=== PATIENT | female | born 1970 | race Caucasian/White ===

== ENCOUNTER 2017-02-12 19:50 | Inpatient (IN) | payer OTHER ==
[2017-02-12 21:44] VITALS: BMI 22.8
--- NOTE | 2017-02-12 23:09 | HP ---
Admission [facility] [place] - [facility] Chief Complaint: SEEKING REHAB TXMENT Allergies/Adverse Reactions: Allergies Allergy/AdvReac Type Severity Reaction Status Date / Time No Known Allergies Allergy Verified 02/12/17 21:59 History of Present Illness: 46 Y.O FEMale WITH ALCOHOLISM DC FROM [facility] TODAY AFTER 10 DAY STAY ADMITTED TO REHAB. CLIENT WAS DC WITH RX BACTRIM FOR a UTI AND LIBRIUM TAPER FOR 2 MORE DAYS. D/W CLIENT LIBRIUM WILL NOT BE CONT WHILE IN REHAB/ CLIENT VERBALIZED UNDERSTANDING. Exam Limitations: No Limitations - Ebola screening Have you traveled outside of the country in the last 21 days: No (N) Have you had contact with anyone from an Ebola affected area: No Have you been sick,other than usual withdrawal symptoms: No Do you have a fever: No - Review of Systems Constitutional: Chills EENT: reports: Dental Problems (DENTURES) Respiratory: reports: No Symptoms reported Cardiac: reports: No Symptoms Reported GI: reports: No Symptoms Reported : reports: No Symptoms Reported Musculoskeletal: reports: No Symptoms Reported Integumentary: reports: No Symptoms Reported Neuro: reports: No Symptoms reported Endocrine: reports: No Symptoms Reported Hematology: reports: No Symptoms Reported Psychiatric: reports: Anxious Other Systems: Reviewed and Negative Patient History - Patient Medical History Hx Anemia: Yes Hx Asthma: No Hx Chronic Obstructive Pulmonary Disease (COPD): No Hx Cancer: No Hx Cardiac Disorders: No Hx Congestive Heart Failure: No Hx Hypertension: No Hx Hypercholesterolemia: No Hx Pacemaker: No HX Cerebrovascular Accident: No Hx Seizures: No Hx Dementia: No Hx Diabetes: No Hx Gastrointestinal Disorders: No Hx Liver Disease: No Hx Genitourinary Disorders: No Hx Sexually Transmitted Disorders: No Hx Renal Disease (ESRD): No Hx Thyroid Disease: No Hx Human Immunodeficiency Virus (HIV): No Hx Hepatitis C: No Hx Depression: No Hx Suicide Attempt: No Hx Bipolar Disorder: No Hx Schizophrenia: No Other Medical History: DENIES - Patient Surgical History Past Surgical History: No - PPD History Previous Implant?: Yes Documented Results: Negative w/o proof Implanted On Prior R Admission?: No PPD to be Administered?: Yes - Reproductive History Patient is a Female of Child Bearing Age (11 -55 yrs old): Yes LMP comment: 01/24/17 Patient : No (NEG [facility] [place] - Smoking Cessation Smoking history: Never smoked Initiated information on smoking cessation: No - Substance & Tx. History Hx Alcohol Use: Yes Hx Substance Use: Yes Substance Use Type: Alcohol Hx Substance Use Treatment: Yes ([facility]) - Substances Abused BEER Route: Oral Frequency: Daily Amount used: 2- 6 PACKS Age of first use: 20 Date of Last Use: 02/02/17 Family Disease History - Family Disease History Family Disease History: Diabetes: Mother, Other: Sister (BREAST CA) Admission Physical Exam [facility] - Vital Signs Vital Signs: Vital Signs - 24 hr 02/12/17 21:41 Temperature 97.5 F L Pulse Rate 92 H Respiratory 20 Rate Blood Pressure 104/73 - Physical General Appearance: Yes: Appropriately Dressed, Tremorous, Anxious HEENTM: Yes: EOMI, Normocephalic, Normal Voice, BRIAN, Pharynx Normal, Other ( DENTURES) Respiratory: Yes: Chest Non-Tender, Lungs Clear, Normal Breath Sounds, No Respiratory Distress, No Accessory Muscle Use Neck: Yes: No masses,lesions,Nodules, Supple, Trachea in good position Breast: Yes: Breast Exam Deferred Cardiology: Yes: Regular Rhythm, Regular Rate, S1, S2 Abdominal: Yes: Normal Bowel Sounds, Non Tender, Soft Genitourinary: Yes: Within Normal Limits Back: Yes: Normal Inspection Extremities: Yes: Normal Capillary Refill, Normal Range of Motion, Non-Tender, Tremors Neurological: Yes: locomotive engineer diesel II-XII NML intact, Fully Oriented, Alert, Motor Strength 5/5 Integumentary: Yes: Normal Color, Dry, Warm, Other (ECCHYMOTIC AREAS TO UE FROM NEEDLE STICKS WHILE HOSPITALIZED) Lymphatic: Yes: Within Normal Limits - Diagnostic (1) UTI (urinary tract infection) Current Visit: Yes Status: Acute (2) Alcohol dependence with uncomplicated withdrawal Current Visit: Yes Status: Chronic Cleared for Admission [facility] - Detox or Rehab Detox Regimen/Protocol: Not Applicable Claeared for Rehab Admission: Yes [facility] Breath Alcohol Content Breath Alcohol Content: 0 Urine Pregancy Test - Result Urine Test Results: Negative- NO Line Present Urine Drug Screen - Results Drug Screen Negative: No Urine Drug Screen Results: BZO-Benzodiazepines
[2017-02-12] MEDS ORDERED: MAGNESIUM CITRATE 300 ML BOTTLE PO PRN (23:20)
[2017-02-12] MEDS ORDERED: P-EPHED 60MG/TRIPROLIDI 2.5MG TABLET PO PRN (23:20)
[2017-02-12] MEDS ORDERED: MAG HYDROX/AL HYDROX/SIMETH 30 ML UNIT-DOSE CUP PO PRN (23:20)
[2017-02-12] MEDS ORDERED: MAGNESIUM HYDROX 2400MG/30ML ORAL SUSPENSION 30 ML CUP PO PRN (23:20)
[2017-02-12] MEDS ORDERED: diphenhydrAMINE HCL 50 MG CAPSULE PO PRN (23:20)
[2017-02-12] MEDS ORDERED: guaiFENesin/D-METHORPHAN HB 10 ML UNIT-DOSE CUPS PO PRN (23:20)
[2017-02-12] MEDS ORDERED: LOPERAMIDE HCL 2 MG CAPSULE PO PRN (23:20)
[2017-02-12] MEDS ORDERED: MENTHOL/PHENOL 1 EACH UD MM PRN (23:20)
[2017-02-13] MEDS ORDERED: TUBERCULIN PPD 5 TU/0.1ML VIAL ID ONE (00:40)
[2017-02-13] MEDS: hydrOXYzine PAMOATE 50 MG CAPSULE (FP) PO PRN (00:45)
[2017-02-13] MEDS: SULFAMETHOXAZOLE/TRIMETHOPRIM 800MG/160MG D.S. TABLET PO SCH ×3 (00:45→22:48)
[2017-02-13] MEDS: ACETAMINOPHEN 325 MG TABLET (FP) PO PRN (07:00)
[2017-02-13 09:56] LABS: MCH 24.1 pg (25.7-33.7); MCHC 31.7 g/dl (32.0-36.0); MEAN CELL VOLUME 76.1 fl (80-96); MEAN PLT VOLUME 8.5 fl (7.5-11.1); PLATELET COUNT 349 K/MM3 (134-434); RDW 15.3 % (11.6-15.6); WHITE BLOOD COUNT 8.5 K/mm3 (4.0-10.0)
[2017-02-13 10:25] LABS: ALBUMIN 2.7 g/dl (3.4-5.0); ALK PHOS 91 U/L (45-117); ANION GAP 10 (8-16); BILIRUBIN,TOTAL 0.6 mg/dL (0.2-1.0); CALCIUM 9.2 mg/dL (8.5-10.1); CO2 26 mmol/L (21-32); COCKROFT - GAULT 94.6135; CREATININE 0.7 mg/dL (0.55-1.02); GLUCOSE,RANDOM 85 mg/dL (74-106); SGOT/AST 104 U/L (15-37); SGPT/ALT 57 U/L (12-78)
[2017-02-13] MEDS: PANTOPRAZOLE 40 MG TABLET (FP) PO SCH (10:37)
[2017-02-13] MEDS: PRENATAL VITAMINS W/ FOLIC ACID TABLET (FP) PO SCH (10:37)
--- NOTE | 2017-02-13 11:00 | EKG ---
Test Reason : Blood Pressure : / mmHG Vent. Rate : 097 BPM Atrial Rate : 097 BPM P-R Int : 134 ms QRS Dur : 074 ms QT Int : 346 ms P-R-T Axes : 042 048 021 degrees QTc Int : 439 ms SINUS RHYTHM WITH PREMATURE SUPRAVENTRICULAR COMPLEXES NONSPECIFIC T WAVE ABNORMALITY ABNORMAL ECG WHEN COMPARED WITH ECG OF 13-FEB-2017 05:45, PREMATURE SUPRAVENTRICULAR COMPLEXES ARE NOW PRESENT Confirmed by LINDSAY LINARES, YUMIKO ([id number]) on 02/13/2017 11:00:04 AM Referred By: Jayne Stark Confirmed By:YUMIKO MONTOYA MD
--- NOTE | 2017-02-13 11:00 | EKG ---
Test Reason : Blood Pressure : / mmHG Vent. Rate : 099 BPM Atrial Rate : 099 BPM P-R Int : 136 ms QRS Dur : 082 ms QT Int : 344 ms P-R-T Axes : 046 047 018 degrees QTc Int : 441 ms NORMAL SINUS RHYTHM NONSPECIFIC T WAVE ABNORMALITY ABNORMAL ECG NO PREVIOUS ECGS AVAILABLE Confirmed by LINDSAY LINARES, YUMIKO ([id number]) on 02/13/2017 11:00:10 AM Referred By: Jayne Stark Confirmed By:YUMIKO MONTOYA MD
[2017-02-13 17:18] LABS: URINE APPEARANCE CLEAR; URINE BILIRUBIN NEGATIVE (NEGATIVE); URINE BLOOD NEGATIVE (NEGATIVE); URINE COLOR LTYELLOW; URINE GLUCOSE (UA) NEGATIVE (NEGATIVE); URINE KETONE NEGATIVE (NEGATIVE); URINE LEUK ESTERASE NEGATIVE (NEGATIVE); URINE NITRITE NEGATIVE (NEGATIVE); URINE PROTEIN NEGATIVE (NEGATIVE); URINE UROBILINOGEN NEGATIVE E.U./dl (0.2-1.0)
[2017-02-13] MEDS: THIAMINE HCL 100 MG TABLET (FP) PO SCH (21:50)
[2017-02-14] MEDS: ACETAMINOPHEN 325 MG TABLET (FP) PO PRN (06:13)
--- NOTE | 2017-02-14 08:11 | HP ---
Psychiatrist Admission - Data Date of interview: 02/14/17 Admission source: [facility] Identifying data: This is the first admission to [address] [place] [address] rehabilitation for this 46 years old single H female,mother of 2 (17 and 23 yo), resides with family,supported by unemployement. Medical History: unremarkable Psychiatric History: denies Physical/Sexual Abuse/Trauma History: denies Vital Signs: Vital Signs - 24 hr 02/14/17 02/14/17 02/14/17 00:30 03:30 06:42 Temperature 97.7 F Pulse Rate 94 H Respiratory 16 16 18 Rate Blood Pressure 114/75 Allergies/Adverse Reactions: Allergies Allergy/AdvReac Type Severity Reaction Status Date / Time No Known Allergies Allergy Verified 02/12/17 21:59 Date of last physical exam: 02/12/17 Concur with the findings of this exam: Yes - Substance Abuse/Tx History Hx Alcohol Use: Yes (reports drinking since 20 yo,about 12 beers daily) Hx Substance Use: No Substance Use Type: Alcohol Hx Substance Use Treatment: Yes (this is her first inpatient rehabilitaton treatment) - Admission Criteria Previous failed treatment: Yes Poor recovery environment: Yes Comorbidities: Yes Lacks judgement: Yes Mental Status Exam - Mental Status Exam Alert and Oriented to: Time, Place, Person Cognitive Function: Grossly Intact Patient Appearance: Well Groomed Mood: Anxious Affect: Labile Patient Behavior: Cooperative Speech Pattern: Clear Voice Loudness: Normal Thought Process: Goal Oriented Thought Disorder: Not Present Hallucinations: Denies Suicidal Ideation: Denies Homicidal Ideation: Denies Insight/Judgement: Fair Sleep: Fair Appetite: Good Muscle strength/Tone: Normal Gait/Station: Normal Psychiatric Findings - Problem List ([place] 1, 2,3) (1) UTI (urinary tract infection) Current Visit: Yes Status: Resolved (2) Alcohol dependence with uncomplicated withdrawal Current Visit: Yes Status: Chronic - Initial Treatment Plan Initial Treatment Plan: Will monitor progress.
[2017-02-14] MEDS: SULFAMETHOXAZOLE/TRIMETHOPRIM 800MG/160MG D.S. TABLET PO SCH ×2 (10:32→23:22)
[2017-02-14] MEDS: PRENATAL VITAMINS W/ FOLIC ACID TABLET (FP) PO SCH (10:32)
[2017-02-14] MEDS: PANTOPRAZOLE 40 MG TABLET (FP) PO SCH (10:32)
[2017-02-14] MEDS: FERROUS SO4 325 MG TABLET (FP) PO SCH (18:10)
[2017-02-14] MEDS: THIAMINE HCL 100 MG TABLET (FP) PO SCH (21:38)
[2017-02-15] MEDS: ACETAMINOPHEN 325 MG TABLET (FP) PO PRN (06:26)
[2017-02-15] MEDS: FERROUS SO4 325 MG TABLET (FP) PO SCH ×3 (07:59→17:45)
[2017-02-15] MEDS: PANTOPRAZOLE 40 MG TABLET (FP) PO SCH (10:21)
[2017-02-15] MEDS: PRENATAL VITAMINS W/ FOLIC ACID TABLET (FP) PO SCH (10:21)
[2017-02-15] MEDS: hydrOXYzine PAMOATE 50 MG CAPSULE (FP) PO PRN (10:22)
[2017-02-15] MEDS: SULFAMETHOXAZOLE/TRIMETHOPRIM 800MG/160MG D.S. TABLET PO SCH ×2 (10:43→23:39)
[2017-02-15] MEDS: THIAMINE HCL 100 MG TABLET (FP) PO SCH (21:25)
[2017-02-16] MEDS: ACETAMINOPHEN 325 MG TABLET (FP) PO PRN (00:54)
[2017-02-16] MEDS: IBUPROFEN 400 MG TABLET (FP) PO PRN (07:24)
[2017-02-16] MEDS: FERROUS SO4 325 MG TABLET (FP) PO SCH ×3 (07:24→18:08)
[2017-02-16] MEDS: PANTOPRAZOLE 40 MG TABLET (FP) PO SCH (10:30)
[2017-02-16] MEDS: PRENATAL VITAMINS W/ FOLIC ACID TABLET (FP) PO SCH (10:30)
[2017-02-16] MEDS: SULFAMETHOXAZOLE/TRIMETHOPRIM 800MG/160MG D.S. TABLET PO SCH (10:30)
[2017-02-16] MEDS: hydrOXYzine PAMOATE 50 MG CAPSULE (FP) PO PRN (12:17)
[2017-02-16] MEDS: THIAMINE HCL 100 MG TABLET (FP) PO SCH (21:37)
[2017-02-17] MEDS: IBUPROFEN 400 MG TABLET (FP) PO PRN (01:39)
[2017-02-17] MEDS: ACETAMINOPHEN 325 MG TABLET (FP) PO PRN (06:17)
[2017-02-17] MEDS: FERROUS SO4 325 MG TABLET (FP) PO SCH ×3 (07:30→16:53)
[2017-02-17] MEDS: PRENATAL VITAMINS W/ FOLIC ACID TABLET (FP) PO SCH (09:52)
[2017-02-17] MEDS: PANTOPRAZOLE 40 MG TABLET (FP) PO SCH (09:52)
[2017-02-17] MEDS: THIAMINE HCL 100 MG TABLET (FP) PO SCH (21:21)
[2017-02-18] MEDS: IBUPROFEN 400 MG TABLET (FP) PO PRN (06:31)
[2017-02-18] MEDS: FERROUS SO4 325 MG TABLET (FP) PO SCH ×3 (07:55→16:51)
[2017-02-18] MEDS: PANTOPRAZOLE 40 MG TABLET (FP) PO SCH (09:54)
[2017-02-18] MEDS: PRENATAL VITAMINS W/ FOLIC ACID TABLET (FP) PO SCH (09:54)
[2017-02-18] MEDS ORDERED: PT OWN MED DRAWER 7, Y5N ONE (10:15)
[2017-02-18] MEDS: THIAMINE HCL 100 MG TABLET (FP) PO SCH (21:27)
[2017-02-19] MEDS: FERROUS SO4 325 MG TABLET (FP) PO SCH ×3 (07:09→17:14)
[2017-02-19] MEDS: PANTOPRAZOLE 40 MG TABLET (FP) PO SCH (10:16)
[2017-02-19] MEDS: PRENATAL VITAMINS W/ FOLIC ACID TABLET (FP) PO SCH (10:16)
[2017-02-19] MEDS: IBUPROFEN 400 MG TABLET (FP) PO PRN (17:14)
[2017-02-19] MEDS: THIAMINE HCL 100 MG TABLET (FP) PO SCH (21:38)
[2017-02-20] MEDS: ACETAMINOPHEN 325 MG TABLET (FP) PO PRN (06:14)
[2017-02-20] MEDS: FERROUS SO4 325 MG TABLET (FP) PO SCH ×3 (07:45→18:30)
[2017-02-20] MEDS: PRENATAL VITAMINS W/ FOLIC ACID TABLET (FP) PO SCH (09:37)
[2017-02-20] MEDS: PANTOPRAZOLE 40 MG TABLET (FP) PO SCH (09:37)
[2017-02-20] MEDS ORDERED: PT OWN MED DRAWER 7, Y5N ONE (10:08)
[2017-02-20] MEDS: THIAMINE HCL 100 MG TABLET (FP) PO SCH (21:37)
[2017-02-21] MEDS: FERROUS SO4 325 MG TABLET (FP) PO SCH ×3 (07:30→17:35)
[2017-02-21] MEDS: IBUPROFEN 400 MG TABLET (FP) PO PRN (07:56)
[2017-02-21] MEDS: PANTOPRAZOLE 40 MG TABLET (FP) PO SCH (09:42)
[2017-02-21] MEDS: PRENATAL VITAMINS W/ FOLIC ACID TABLET (FP) PO SCH (09:42)
[2017-02-21] MEDS ORDERED: PT OWN MED DRAWER 7, Y5N ONE (12:25)
[2017-02-21] MEDS: THIAMINE HCL 100 MG TABLET (FP) PO SCH (21:24)
[2017-02-22] MEDS: IBUPROFEN 400 MG TABLET (FP) PO PRN (06:24)
[2017-02-22] MEDS: FERROUS SO4 325 MG TABLET (FP) PO SCH ×3 (07:37→17:35)
[2017-02-22] MEDS: PANTOPRAZOLE 40 MG TABLET (FP) PO SCH (10:03)
[2017-02-22] MEDS: PRENATAL VITAMINS W/ FOLIC ACID TABLET (FP) PO SCH (10:03)
[2017-02-22] MEDS ORDERED: PT OWN MED DRAWER 7, Y5N ONE (11:29)
[2017-02-22] MEDS: THIAMINE HCL 100 MG TABLET (FP) PO SCH (21:29)
[2017-02-23] MEDS: IBUPROFEN 400 MG TABLET (FP) PO PRN (06:21)
[2017-02-23] MEDS: FERROUS SO4 325 MG TABLET (FP) PO SCH ×3 (07:24→17:51)
[2017-02-23] MEDS: PANTOPRAZOLE 40 MG TABLET (FP) PO SCH (10:19)
[2017-02-23] MEDS: PRENATAL VITAMINS W/ FOLIC ACID TABLET (FP) PO SCH (10:19)
--- NOTE | 2017-02-23 11:43 | PN ---
Psychiatric Progress Note Vital Signs: Vital Signs Period Temp Pulse Resp BP Sys/Garcia Pulse Ox Last 24 Hr 98.2 F 95 16-16 107/77 Date of Session: 02/23/17 Chief Complaint:: Mario still having craving for alcohol." HPI: Patient addressed Alcohol dependence. ROS: H/O UTI. Current Medications: Active Medications Generic Name Dose Route Start Last Admin Trade Name Freq PRN Reason Stop Dose Admin Acamprosate 666 mg 02/23/17 14:00 Campral - PO TID ARLETTE Acetaminophen 650 mg 02/12/17 23:20 02/20/17 06:14 Tylenol - PO 650 mg Q4H PRN Administration PAIN Al Hydroxide/Mg Hydroxide 30 ml 02/12/17 23:20 Mylanta Oral Suspension - PO Q6H PRN DYSPEPSIA Diphenhydramine HCl 50 mg 02/12/17 23:20 02/17/17 21:21 Benadryl - PO 50 mg HSMR1 PRN Administration INSOMNIA Eucalyptus/Menthol/Phenol/Sorbitol 1 each 02/12/17 23:20 Cepastat Lozenge - MM Q4H PRN SORE THROAT Ferrous Sulfate 325 mg 02/14/17 17:30 02/23/17 07:24 Feosol - PO 325 mg TIDCM ARLETTE Administration Guaifenesin 10 ml 02/12/17 23:20 Robitussin Dm - PO Q6H PRN COUGH Hydroxyzine Pamoate 50 mg 02/12/17 23:20 02/16/17 12:17 Vistaril - PO 50 mg Q4H PRN Administration AGITATION Ibuprofen 400 mg 02/12/17 23:20 02/23/17 06:21 Motrin - PO 400 mg Q6H PRN Administration SEVERE PAIN Loperamide HCl 4 mg 02/12/17 23:20 Imodium - PO Q6H PRN DIARRHEA Magnesium Citrate 300 ml 02/12/17 23:20 Citroma - PO Q48H PRN CONSTIPATION Magnesium Hydroxide 30 ml 02/12/17 23:20 Milk Of Magnesia - PO DAILY PRN CONSTIPATION Pantoprazole Sodium 40 mg 02/13/17 10:00 02/23/17 10:19 Protonix - PO 40 mg DAILY ARLETTE Administration Multivit/Folic Acid/Iron 1 tab 02/13/17 10:00 02/23/17 10:19 Vitamins (Sjr) - PO 1 tab DAILY ARLETTE Administration Pseudoephedrine/Triprolidine 1 combo 02/12/17 23:20 Actifed - PO TID PRN NASAL CONGESTION Thiamine HCl 100 mg 02/13/17 22:00 02/22/17 21:29 Vitamin B1 - PO 100 mg HS ARLETTE Administration Current Side Effect: No Lab tests ordered: No Lab tests reviewed: Yes Provider note:: Patient was evaluated today due to ongoing alcohol craving .She reports that she is still thinking about drinking beer and afraid how she would handle it after discharge home.Properties of Campral has been discussed with the patient including side effects,benefits.Patient is willing to start Campral 333 mg po 2 tab po tid since today. Coping skills utilization to maintain recovery has been discussed with the patient. Supportive therapy provided. Total face to face time:: 30 Mental Status Exam - Mental Status Exam Alert and Oriented to: Time, Place, Person Cognitive Function: Grossly Intact Patient Appearance: Well Groomed Mood: Nervous Affect: Labile Patient Behavior: Cooperative Speech Pattern: Clear Voice Loudness: Normal Thought Process: Goal Oriented Thought Disorder: Not Present Hallucinations: Denies Suicidal Ideation: Denies Homicidal Ideation: Denies Insight/Judgement: Fair Sleep: Fair Appetite: Fair Muscle strength/Tone: Normal Gait/Station: Normal Psychiatric Treatment Plan - Problem List (1) UTI (urinary tract infection) Current Visit: Yes (2) Alcohol dependence with uncomplicated withdrawal Current Visit: Yes
[2017-02-23] MEDS: ACAMPROSATE CALCIUM 333 MG TABLET.DR PO SCH ×2 (13:22→21:47)
[2017-02-23] MEDS: THIAMINE HCL 100 MG TABLET (FP) PO SCH (21:47)
[2017-02-24] MEDS: ACAMPROSATE CALCIUM 333 MG TABLET.DR PO SCH ×3 (06:46→21:36)
[2017-02-24] MEDS: FERROUS SO4 325 MG TABLET (FP) PO SCH ×3 (07:01→17:25)
[2017-02-24] MEDS: PRENATAL VITAMINS W/ FOLIC ACID TABLET (FP) PO SCH (09:59)
[2017-02-24] MEDS: PANTOPRAZOLE 40 MG TABLET (FP) PO SCH (09:59)
[2017-02-24] MEDS: THIAMINE HCL 100 MG TABLET (FP) PO SCH (21:35)
[2017-02-25] MEDS: ACAMPROSATE CALCIUM 333 MG TABLET.DR PO SCH ×3 (06:42→21:40)
[2017-02-25] MEDS: FERROUS SO4 325 MG TABLET (FP) PO SCH ×3 (07:34→17:25)
[2017-02-25] MEDS: PRENATAL VITAMINS W/ FOLIC ACID TABLET (FP) PO SCH (10:04)
[2017-02-25] MEDS: PANTOPRAZOLE 40 MG TABLET (FP) PO SCH (10:04)
[2017-02-25] MEDS: THIAMINE HCL 100 MG TABLET (FP) PO SCH (21:40)
[2017-02-26] MEDS: ACAMPROSATE CALCIUM 333 MG TABLET.DR PO SCH (07:22)
[2017-02-26] MEDS: FERROUS SO4 325 MG TABLET (FP) PO SCH (07:25)
[2017-02-26 07:49] VITALS: BP 113/79; PULSE 84; TEMP 98.2
--- NOTE | 2017-02-26 09:24 | PN ---
Psychiatric Progress Note Vital Signs: Vital Signs Period Temp Pulse Resp BP Sys/Garcia Pulse Ox Last 24 Hr 98.2 F 84 16-18 113/79 Date of Session: 02/26/17 Chief Complaint:: Disharge visit HPI: Patient addressed Alcohol dependence. ROS: Significant for UTI. Current Medications: Active Medications Generic Name Dose Route Start Last Admin Trade Name Freq PRN Reason Stop Dose Admin Acamprosate 666 mg 02/23/17 14:00 02/26/17 07:22 Campral - PO 666 mg TID ARLETTE Administration Acetaminophen 650 mg 02/12/17 23:20 02/20/17 06:14 Tylenol - PO 650 mg Q4H PRN Administration PAIN Al Hydroxide/Mg Hydroxide 30 ml 02/12/17 23:20 Mylanta Oral Suspension - PO Q6H PRN DYSPEPSIA Diphenhydramine HCl 50 mg 02/12/17 23:20 02/17/17 21:21 Benadryl - PO 50 mg HSMR1 PRN Administration INSOMNIA Eucalyptus/Menthol/Phenol/Sorbitol 1 each 02/12/17 23:20 Cepastat Lozenge - MM Q4H PRN SORE THROAT Ferrous Sulfate 325 mg 02/14/17 17:30 02/26/17 07:25 Feosol - PO 325 mg TIDCM ARLETTE Administration Guaifenesin 10 ml 02/12/17 23:20 Robitussin Dm - PO Q6H PRN COUGH Hydroxyzine Pamoate 50 mg 02/12/17 23:20 02/16/17 12:17 Vistaril - PO 50 mg Q4H PRN Administration AGITATION Ibuprofen 400 mg 02/12/17 23:20 02/23/17 06:21 Motrin - PO 400 mg Q6H PRN Administration SEVERE PAIN Loperamide HCl 4 mg 02/12/17 23:20 Imodium - PO Q6H PRN DIARRHEA Magnesium Citrate 300 ml 02/12/17 23:20 Citroma - PO Q48H PRN CONSTIPATION Magnesium Hydroxide 30 ml 02/12/17 23:20 Milk Of Magnesia - PO DAILY PRN CONSTIPATION Pantoprazole Sodium 40 mg 02/13/17 10:00 02/25/17 10:04 Protonix - PO 40 mg DAILY ARLETTE Administration Multivit/Folic Acid/Iron 1 tab 02/13/17 10:00 02/25/17 10:04 Vitamins (Sjr) - PO 1 tab DAILY ARLETTE Administration Pseudoephedrine/Triprolidine 1 combo 02/12/17 23:20 Actifed - PO TID PRN NASAL CONGESTION Thiamine HCl 100 mg 02/13/17 22:00 02/25/17 21:40 Vitamin B1 - PO 100 mg HS ARLETTE Administration Current Side Effect: No Lab tests ordered: No Lab tests reviewed: Yes Provider note:: Patient completed this program today.She has met her treatment goals and will continue to address her issues on outpatient basis at [facility] program in the [place].Patient continues to find that Campral 333 mg 2 tab po tid help to reduce craving for alcohol.Scripts for 30 days provided. Supportive therapy provided including utilization of coping skills,support system to maintain recovery. Patient is stable for discharge today. Total face to face time:: 30 Mental Status Exam - Mental Status Exam Alert and Oriented to: Time, Place, Person Cognitive Function: Grossly Intact Patient Appearance: Well Groomed Mood: Euthymic Affect: Mood Congruent Patient Behavior: Cooperative Speech Pattern: Clear Voice Loudness: Normal Thought Process: Goal Oriented Thought Disorder: Not Present Hallucinations: Denies Suicidal Ideation: Denies Homicidal Ideation: Denies Insight/Judgement: Fair Sleep: Fair Appetite: Good Muscle strength/Tone: Normal Gait/Station: Normal Psychiatric Treatment Plan - Problem List (1) UTI (urinary tract infection) Current Visit: Yes (2) Alcohol dependence with uncomplicated withdrawal Current Visit: Yes
== END 2017-02-26 10:15 | disposition home or self-care (01) | DRG 772 ==
LOC: YASAS 19:50 → Y6N 22:00 → UNDOADMIN 22:00 → Y3E 22:19
PROVIDERS: ADMIT Psychiatry & Neurology Psychiatry; ATTEND Psychiatry & Neurology Psychiatry
PROC: HZ42ZZZ Group Counseling for Substance Abuse Treatment, Cognitive-Behavioral (ICD-10-PCS; principal; 2017-02-12)
DX: F10.20 Alcohol dependence, uncomplicated (principal); N39.0 Urinary tract infection, site not specified; D64.9 Anemia, unspecified
CPT/HCPCS: 36415; 80053; 81003; 85027; 86593; 86803; 93005; 93010

== ENCOUNTER 2023-12-25 10:36 | Inpatient (IN) | payer OTHER ==
[2023-12-25 11:04] VITALS: BMI 22.3
[2023-12-25] MEDS ORDERED: DICYCLOMINE HCL 10 MG CAPSULE PO PRN (12:59)
[2023-12-25] MEDS ORDERED: POLYETHYLENE GLYCOL (HEALTHYLAX) 3350 17 GM PACKET PO PRN (12:59)
[2023-12-25] MEDS ORDERED: BENZOCAINE/MENTHOL (CHLORASEPTIC ) LOZENGE MM PRN (12:59)
[2023-12-25] MEDS ORDERED: LOPERAMIDE HCL 2 MG CAPSULE PO PRN (12:59)
[2023-12-25] MEDS ORDERED: NALOXONE HCL (KLOXXADO) 8 MG SPRAY NS PRN (12:59)
[2023-12-25] MEDS ORDERED: MAGNESIUM HYDROX 2400MG/30ML ORAL SUSPENSION 30 ML CUP PO PRN (12:59)
[2023-12-25] MEDS ORDERED: BISMUTH SUBSALICYLATE 524 MG/30 ML PO PRN (12:59)
[2023-12-25] MEDS ORDERED: guaiFENesin 600 MG TABLET.ER (FP) PO PRN (12:59)
[2023-12-25] MEDS ORDERED: IBUPROFEN 400 MG TABLET (FP) PO PRN (12:59)
[2023-12-25] MEDS ORDERED: MAG HYDROX/AL HYDROX/SIMETH 30 ML UNIT-DOSE CUP PO PRN (12:59)
[2023-12-25] MEDS ORDERED: NALOXONE HCL 0.4 MG/ML VIAL IM PRN (12:59)
[2023-12-25] MEDS ORDERED: ONDANSETRON *ODT* 4 MG TABLET SL PRN (12:59)
[2023-12-25] MEDS ORDERED: ACETAMINOPHEN 325 MG TABLET (FP) PO PRN (12:59)
[2023-12-25] MEDS ORDERED: BENZONATATE 200 MG CAPSULE PO PRN (12:59)
[2023-12-25] MEDS: METHOCARBAMOL 500 MG TABLET PO PRN (13:52)
[2023-12-25] MEDS: hydrOXYzine PAMOATE 25 MG CAPSULE (FP) PO PRN (13:52)
[2023-12-25] MEDS: PANTOPRAZOLE 40 MG TABLET PO SCH (17:15)
[2023-12-25] MEDS: chlordiazePOXIDE HCL 25 MG CAPSULE PO SCH (17:15)
[2023-12-25] MEDS: IBUPROFEN 600 MG TABLET (FP) PO PRN (17:16)
[2023-12-25] MEDS: SULFAMETHOXAZOLE/TRIMETHOPRIM 800MG/160MG D.S. TABLET PO SCH (22:11)
[2023-12-25] MEDS: THIAMINE 100 MG TABLET PO SCH (22:11)
[2023-12-25] MEDS: MELATONIN 5 MG TABLETS PO SCH (22:11)
[2023-12-26] MEDS: PRENATAL VITAMINS W/ FOLIC ACID TABLET (FP) PO SCH (10:33)
[2023-12-26] MEDS: amLODIPine BESYLATE 5 MG TABLET (FP) PO SCH (11:08)
[2023-12-26 11:24] LABS: HEMOGLOBIN 9.7 GM/dL (10.7-15.3); MCH 23.9 pg (25.7-33.7); MCHC 31.3 g/dl (32.0-36.0); MEAN CELL VOLUME 76.5 fl (80-96); MEAN PLT VOLUME 8.4 fl (7.5-11.1); PLATELET COUNT 109 10^3/uL (134-434); RBC 4.06 M/mm3 (3.60-5.2); RDW 19.9 % (11.6-15.6)
[2023-12-26 11:30] LABS: WHITE BLOOD COUNT 1.9 K/mm3 (4.0-10.0)
[2023-12-26 11:44] LABS: POTASSIUM 3.9 mmol/L (3.5-5.1)
[2023-12-26 11:45] LABS: CALCIUM 9.2 mg/dL (8.5-10.1)
[2023-12-26 11:46] LABS: BLOOD UREA NITROGEN 7.2 mg/dL (7-18)
[2023-12-26 11:48] LABS: CREATININE 0.7 mg/dL (0.55-1.3)
[2023-12-26 11:52] LABS: BILIRUBIN,TOTAL 0.8 mg/dL (0.2-1); TOT PROT 7.6 g/dl (6.4-8.2)
[2023-12-26] MEDS: chlordiazePOXIDE HCL 25 MG CAPSULE PO PRN (13:29)
[2023-12-26] MEDS: BACITRACIN 0.9 GM PACKET TP SCH (22:25)
[2023-12-27] MEDS: chlordiazePOXIDE HCL 25 MG CAPSULE PO SCH (05:50)
[2023-12-27 10:16] LABS: HEMATOCRIT 29.7 % (32.4-45.2); HEMOGLOBIN 9.3 GM/dL (10.7-15.3); MCH 24.1 pg (25.7-33.7); MCHC 31.3 g/dl (32.0-36.0); MEAN CELL VOLUME 76.9 fl (80-96); MEAN PLT VOLUME 8.2 fl (7.5-11.1); PLATELET COUNT 75 10^3/uL (134-434); RBC 3.87 M/mm3 (3.60-5.2); RDW 18.9 % (11.6-15.6); WHITE BLOOD COUNT 2.6 K/mm3 (4.0-10.0)
[2023-12-28] MEDS ORDERED: chlordiazePOXIDE HCL 10 MG CAPSULE PO PRN
[2023-12-28] MEDS: chlordiazePOXIDE HCL 10 MG CAPSULE PO SCH (05:51)
[2023-12-29] MEDS: chlordiazePOXIDE HCL 10 MG CAPSULE PO SCH (05:51)
[2023-12-29 20:56] VITALS: RESP 17
[2023-12-30] MEDS: chlordiazePOXIDE HCL 10 MG CAPSULE PO ONE (05:37)
[2023-12-30 10:37] VITALS: BP 136/82; PULSE 110; TEMP 98.6
== END 2023-12-30 11:15 | disposition home or self-care (01) | DRG 775 ==
LOC: YASAS 10:36 → Y6N 13:16
PROVIDERS: ADMIT Allergy & Immunology; ATTEND Surgery
PROC: HZ2ZZZZ Detoxification Services for Substance Abuse Treatment (ICD-10-PCS; principal; 2023-12-25)
DX: F10.230 Alcohol dependence with withdrawal, uncomplicated (principal); D50.9 Iron deficiency anemia, unspecified; D72.819 Decreased white blood cell count, unspecified; I10 Essential (primary) hypertension; K21.9 Gastro-esophageal reflux disease without esophagitis; R73.03 Prediabetes; R79.89 Other specified abnormal findings of blood chemistry
CPT/HCPCS: 36415; 80053; 80305; 80307; 81025; 82607; 82728; 82747; 83540; 83550; 85014; 85027; 86780; 93005; 93010

== ENCOUNTER 2024-09-12 09:13 | Inpatient (IN) | payer OTHER ==
[2024-09-12 09:38] VITALS: BMI 23.3
[2024-09-12] MEDS ORDERED: ACETAMINOPHEN 325 MG TABLET (FP) PO PRN (09:49)
[2024-09-12] MEDS ORDERED: DICYCLOMINE HCL 10 MG CAPSULE PO PRN (09:49)
[2024-09-12] MEDS ORDERED: MAG HYDROX/AL HYDROX/SIMETH 30 ML UNIT-DOSE CUP PO PRN (09:49)
[2024-09-12] MEDS ORDERED: NALOXONE (NARCAN) HCL 4 MG/0.1 ML SPRAY NS PRN (09:49)
[2024-09-12] MEDS ORDERED: LOPERAMIDE HCL 2 MG CAPSULE PO PRN (09:49)
[2024-09-12] MEDS ORDERED: POLYETHYLENE GLYCOL (HEALTHYLAX) 3350 17 GM PACKET PO PRN (09:49)
[2024-09-12] MEDS ORDERED: BENZONATATE 200 MG CAPSULE PO PRN (09:49)
[2024-09-12] MEDS ORDERED: IBUPROFEN 400 MG TABLET (FP) PO PRN (09:49)
[2024-09-12] MEDS ORDERED: guaiFENesin 600 MG TABLET.ER (FP) PO PRN (09:49)
[2024-09-12] MEDS ORDERED: ONDANSETRON *ODT* 4 MG TABLET SL PRN (09:49)
[2024-09-12] MEDS ORDERED: BISMUTH SUBSALICYLATE 262 MG/15 ML BTL PO PRN (09:49)
[2024-09-12] MEDS ORDERED: IBUPROFEN 600 MG TABLET (FP) PO PRN (09:49)
[2024-09-12] MEDS ORDERED: MAGNESIUM HYDROX 2400MG/30ML ORAL SUSPENSION 30 ML CUP PO PRN (09:49)
[2024-09-12] MEDS ORDERED: P-EPHED 60MG/TRIPROLIDI 2.5MG TABLET PO PRN (09:49)
[2024-09-12] MEDS ORDERED: BENZOCAINE/MENTHOL (CHLORASEPTIC ) LOZENGE MM PRN (09:49)
[2024-09-12] MEDS ORDERED: PRENATAL VITAMINS W/ FOLIC ACID TABLET (FP) PO ONE (11:32)
[2024-09-12] MEDS: PRENATAL VITAMINS W/ FOLIC ACID TABLET (FP) PO SCH (11:34)
[2024-09-12] MEDS: hydrOXYzine PAMOATE 25 MG CAPSULE (FP) PO PRN (17:56)
[2024-09-12] MEDS: METHOCARBAMOL 500 MG TABLET PO PRN (17:56)
[2024-09-12] MEDS: MELATONIN 5 MG TABLETS PO SCH (21:38)
[2024-09-12] MEDS: THIAMINE 100 MG TABLET PO SCH (21:38)
[2024-09-13 10:07] LABS: HEMATOCRIT 36.3 % (32.4-45.2); MCH 23.5 pg (25.7-33.7); MCHC 30.3 g/dl (32.0-36.0); MEAN CELL VOLUME 77.7 fl (80-96); MEAN PLT VOLUME 7.6 fl (7.5-11.1); PLATELET COUNT 130 10^3/uL (134-434); RBC 4.67 M/mm3 (3.60-5.2); RDW 14.1 % (11.6-15.6); WHITE BLOOD COUNT 2.7 K/mm3 (4.0-10.0)
[2024-09-13] MEDS ORDERED: chlordiazePOXIDE HCL 25 MG CAPSULE PO PRN (10:26)
[2024-09-13] MEDS: chlordiazePOXIDE HCL 25 MG CAPSULE PO SCH (10:51)
[2024-09-13 12:45] LABS: POTASSIUM 3.8 mmol/L (3.5-5.1)
[2024-09-13 12:49] LABS: ALBUMIN 4.1 g/dl (3.4-5.0); BLOOD UREA NITROGEN 8.3 mg/dL (7-18)
[2024-09-13 12:51] LABS: CALCIUM 10.2 mg/dL (8.5-10.1)
[2024-09-13 12:55] LABS: CREATININE 0.5 mg/dL (0.55-1.3)
[2024-09-13 12:56] LABS: BILIRUBIN,TOTAL 0.8 mg/dL (0.2-1)
[2024-09-13 13:11] LABS: TOT PROT 7.5 g/dl (6.4-8.2)
[2024-09-13] MEDS: PANTOPRAZOLE 40 MG TABLET PO SCH (14:54)
[2024-09-14] MEDS: amLODIPine BESYLATE 5 MG TABLET (FP) PO SCH (10:29)
[2024-09-15] MEDS: chlordiazePOXIDE HCL 25 MG CAPSULE PO SCH (05:59)
[2024-09-15 09:05] VITALS: RESP 16
[2024-09-16] MEDS ORDERED: chlordiazePOXIDE HCL 10 MG CAPSULE PO PRN
[2024-09-16] MEDS: chlordiazePOXIDE HCL 10 MG CAPSULE PO SCH (05:40)
[2024-09-16 08:52] VITALS: BP 100/68; PULSE 90; TEMP 97.6
[2024-09-16] MEDS: NALOXONE (NYS OPIOID OVERDOSE PROGRAM) 4 MG/0.1 ML SPRAY NS SCH (09:33)
[2024-09-16] MEDS: FAMOTIDINE 20 MG PO SCH (09:33)
[2024-09-17] MEDS ORDERED: chlordiazePOXIDE HCL 10 MG CAPSULE PO SCH (05:00)
[2024-09-18] MEDS ORDERED: chlordiazePOXIDE HCL 10 MG CAPSULE PO ONE (05:00)
== END 2024-09-16 10:04 | disposition left against medical advice (07) | DRG 770 ==
LOC: YASAS 09:13 → Y3N 11:39
PROVIDERS: ADMIT Allergy & Immunology; ATTEND Allergy & Immunology
PROC: HZ2ZZZZ Detoxification Services for Substance Abuse Treatment (ICD-10-PCS; principal; 2024-09-12)
DX: F10.230 Alcohol dependence with withdrawal, uncomplicated (principal); I10 Essential (primary) hypertension; K21.9 Gastro-esophageal reflux disease without esophagitis
CPT/HCPCS: 36415; 80053; 80305; 80307; 85027; 86780

== ENCOUNTER 2025-01-08 09:07 | Inpatient (IN) | payer OTHER ==
[2025-01-08 09:35] VITALS: BMI 23.3
[2025-01-08] MEDS ORDERED: DICYCLOMINE HCL 10 MG CAPSULE PO PRN (10:35)
[2025-01-08] MEDS ORDERED: guaiFENesin 600 MG TABLET.ER (FP) PO PRN (10:35)
[2025-01-08] MEDS ORDERED: ACETAMINOPHEN 325 MG TABLET (FP) PO PRN (10:35)
[2025-01-08] MEDS ORDERED: MAGNESIUM HYDROX 2400MG/30ML ORAL SUSPENSION 30 ML CUP PO PRN (10:35)
[2025-01-08] MEDS ORDERED: NALOXONE (NARCAN) HCL 4 MG/0.1 ML SPRAY NS PRN (10:35)
[2025-01-08] MEDS ORDERED: POLYETHYLENE GLYCOL (HEALTHYLAX) 3350 17 GM PACKET PO PRN (10:35)
[2025-01-08] MEDS ORDERED: LOPERAMIDE HCL 2 MG CAPSULE PO PRN (10:35)
[2025-01-08] MEDS ORDERED: BENZONATATE 200 MG CAPSULE PO PRN (10:35)
[2025-01-08] MEDS ORDERED: BENZOCAINE/MENTHOL (CHLORASEPTIC ) LOZENGE MM PRN (10:35)
[2025-01-08] MEDS ORDERED: IBUPROFEN 400 MG TABLET (FP) PO PRN (10:35)
[2025-01-08] MEDS ORDERED: BISMUTH SUBSALICYLATE 262 MG/15 ML BTL PO PRN (10:35)
[2025-01-08] MEDS ORDERED: IBUPROFEN 600 MG TABLET (FP) PO PRN (10:35)
[2025-01-08] MEDS ORDERED: ONDANSETRON *ODT* 4 MG TABLET SL PRN (10:35)
[2025-01-08] MEDS ORDERED: MAG HYDROX/AL HYDROX/SIMETH 30 ML UNIT-DOSE CUP PO PRN (10:35)
[2025-01-08] MEDS: chlordiazePOXIDE HCL 25 MG CAPSULE PO PRN (11:54)
[2025-01-08] MEDS: METHOCARBAMOL 500 MG TABLET PO PRN (11:54)
[2025-01-08] MEDS: chlordiazePOXIDE HCL 25 MG CAPSULE PO SCH (17:13)
[2025-01-08] MEDS: THIAMINE 100 MG TABLET PO SCH (22:07)
[2025-01-08] MEDS: hydrOXYzine PAMOATE 25 MG CAPSULE (FP) PO PRN (22:07)
[2025-01-08] MEDS: MELATONIN 5 MG TABLETS PO SCH (22:07)
[2025-01-09] MEDS: PRENATAL VITAMINS W/ FOLIC ACID TABLET (FP) PO SCH (10:03)
[2025-01-09] MEDS: amLODIPine BESYLATE 5 MG TABLET (FP) PO SCH (10:03)
[2025-01-09 11:02] LABS: HEMATOCRIT 34.2 % (34.1-44.9); HEMOGLOBIN 10.4 g/dL (11.2-15.7); MCHC 30.4 g/dl (32.2-35.5); MEAN CELL VOLUME 76.2 fl (79.4-94.8); PLATELET COUNT 171 x10^3/uL (182-369)
[2025-01-09 11:10] LABS: POTASSIUM 3.4 mmol/L (3.5-5.1)
[2025-01-09 11:32] LABS: CALCIUM 9.6 mg/dL (8.5-10.1)
[2025-01-09 11:33] LABS: BLOOD UREA NITROGEN 10.2 mg/dL (7-18)
[2025-01-09 11:36] LABS: CREATININE 0.5 mg/dL (0.55-1.3)
[2025-01-09 11:38] LABS: BILIRUBIN,TOTAL 0.3 mg/dL (0.2-1); TOT PROT 7.3 g/dl (6.4-8.2)
[2025-01-09] MEDS: POTASSIUM CHLORIDE ORAL LIQUID 20 MEQ/15 ML PO ONE (12:43)
[2025-01-10] MEDS: chlordiazePOXIDE HCL 25 MG CAPSULE PO SCH (05:39)
[2025-01-11] MEDS ORDERED: chlordiazePOXIDE HCL 10 MG CAPSULE PO PRN
[2025-01-11] MEDS: chlordiazePOXIDE HCL 10 MG CAPSULE PO SCH (05:42)
[2025-01-12] MEDS: chlordiazePOXIDE HCL 10 MG CAPSULE PO SCH (05:55)
[2025-01-12 06:08] VITALS: RESP 16
[2025-01-12 09:25] VITALS: BP 113/74; PULSE 91; TEMP 97.5
[2025-01-13] MEDS ORDERED: chlordiazePOXIDE HCL 10 MG CAPSULE PO ONE (05:00)
== END 2025-01-12 10:26 | disposition home or self-care (01) | DRG 775 ==
LOC: YASAS 09:07 → Y3N 11:00
PROVIDERS: ADMIT Allergy & Immunology; ATTEND Allergy & Immunology
PROC: HZ2ZZZZ Detoxification Services for Substance Abuse Treatment (ICD-10-PCS; principal; 2025-01-08)
DX: F10.230 Alcohol dependence with withdrawal, uncomplicated (principal); D50.9 Iron deficiency anemia, unspecified; G47.00 Insomnia, unspecified; I10 Essential (primary) hypertension; K21.9 Gastro-esophageal reflux disease without esophagitis
CPT/HCPCS: 36415; 80053; 80305; 80307; 81025; 84132; 85027; 86780; 93005; 93010